=== PATIENT | female | born 2000 | race Caucasian/White ===

== ENCOUNTER 2020-01-08 08:48 | Emergency (ER) | payer SELFPAY ==
[~2020-01-08] VITALS: Ht 154.9 cm; Wt 48.4 kg
[2020-01-08] MEDS ORDERED: SODIUM CHLORIDE 0.9% 1,000ML IVBOLUS ONE (09:30)
[2020-01-08] MEDS ORDERED: AMPICILLIN/SULBACTAM 3 GM in SODIUM CHLORIDE 0.9% 100 ML IV ONE (09:30)
[2020-01-08 09:44] LABS: BASOPHILS % (AUTO) 0 % (0-1); EOSINOPHILS % (AUTO) 0 % (1-7); LYMPHOCYTES % (AUTO) 14 % (22-44); MEAN CORPUSCULAR HEMOGLOBIN 30.7 pg (27.0-34.8); MEAN CORPUSCULAR HGB CONC 32.8 g/dL (32.4-35.8); MEAN PLATELET VOLUME 7.7 fL (7.4-10.4); MONOCYTES % (AUTO) 7 % (2-9); NEUTROPHILS % (AUTO) 79 % (42-75); PLATELET COUNT 256 x10^3/uL (130-400); RED BLOOD COUNT 3.78 x10^6/uL (3.82-5.3); RED CELL DISTRIBUTION WIDTH 14.8 % (9.6-15.2)
[2020-01-08 09:45] LABS: MD NO
[2020-01-08 09:46] LABS: ALBUMIN 3.5 g/dL (3.4-5.0); ANION GAP 10 mmol/L (5-15); CALCIUM 8.9 mg/dL (8.5-10.1); CHLORIDE 109 mmol/L (98-107)
[2020-01-08 09:47] LABS: CREATININE 0.65 mg/dL (0.55-1.02)
[2020-01-08] MEDS ORDERED: ONDANSETRON 2MG/ML, 2ML ONE (09:47)
[2020-01-08] MEDS ORDERED: MORPHINE SULFATE 4 MG/ML, 1ML ONE ×2 (09:48→10:51)
[2020-01-08] MEDS: MORPHINE SULFATE 4 MG/ML, 1ML IVPush PRN ×2 (09:49→10:58)
[2020-01-08] MEDS ORDERED: ONDANSETRON 2MG/ML, 2ML IVPush ONE (10:00)
[2020-01-08] MEDS ORDERED: OMNIPAQUE 350 MG/ML, 75ML BOTTLE ONE (10:11)
[2020-01-08 10:58] VITALS: BP 139/85
== END 2020-01-08 11:01 | disposition home or self-care (01) ==
LOC: ED 09:28
DX: K08.89 Other specified disorders of teeth and supporting structures (principal); R51.9 Headache, unspecified; R22.0 Localized swelling, mass and lump, head; F17.200 Nicotine dependence, unspecified, uncomplicated
CPT/HCPCS: 36415; 70487; 80048; 82040; 85025; 96365; 96375; 96376; 99285; J0295; J2270; J2405; J7030; Q9967